=== PATIENT | male | born 1975 | race Caucasian/White ===

== ENCOUNTER 2018-07-18 19:45 | Emergency (ER) | payer OTHER ==
[2018-07-18] MEDS: LIDOCAINE 1% (MPF) 5 ML VIAL INFIL (22:40)
[2018-07-18] MEDS: HYDROCODONE/APAP (10/325) TAB PO (22:40)
[2018-07-18] MEDS ORDERED: SOD CHLORIDE 0.9% 1,000 ML IV (23:00)
== END 2018-07-18 23:29 | disposition home or self-care (01) ==
LOC: FTE 19:45
DX: L02.213 Cutaneous abscess of chest wall (principal); E11.9 Type 2 diabetes mellitus without complications; Z79.84 Long term (current) use of oral hypoglycemic drugs
CPT/HCPCS: 10060; 99283-25

== ENCOUNTER 2018-07-21 06:24 | Emergency (ER) | payer OTHER ==
[2018-07-21] MEDS: IBUPROFEN 800 MG TAB PO (07:09)
== END 2018-07-21 07:42 | disposition home or self-care (01) ==
LOC: FTE 06:24
DX: Z48.01 Encounter for change or removal of surgical wound dressing (principal); E11.9 Type 2 diabetes mellitus without complications; Z79.84 Long term (current) use of oral hypoglycemic drugs
CPT/HCPCS: 99281